=== PATIENT | male | born 1980 | race Caucasian/White ===

== ENCOUNTER 2016-12-18 23:01 | Emergency (ER) | payer OTHER ==
[~2016-12-18] VITALS: Ht 177.8 cm; Wt 86.2 kg
[~2016-12-18 23:01] MED LIST: ACETAMINOPHEN-H1 TA2 PO; BUPROPION HCL150 MG PO; CLINDAMYCIN300 MG PO; DARVOCET-N 1001 EACH PO; FLEXERIL10 MG PO; KEFLEX500 M1 PO; LEVOTHYROXINE0.05 MG PO; MINOCYCLINE 10100 MG PO; NAPROXEN SODIU500 MG PO; NOMEDS; PRIMIDONE 50 MG50 MG PO; SERTRALINE 100100 MG PO; ULTRAM50 MG PO; VOLTAREN75 MG PO; ZITHROMAX Z PA250 MG PO; ZITHROMAX Z-PA250 M1 PO
--- NOTE | 2016-12-18 23:24 | Emergency Room Report ---
History of Present Illness Time Seen by [id number] Presenting Problem in Triage Pt arrived:Walked Presenting Problem:C/O PAIN LEFT FOOT AFTER STEPPING DOWN OFF STEP AND TWISTING FOOT/ANKLE TODAY. 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 N Clinical Suspician of Infection? N Mental Status: 1 - Regular (Normal Baseline) Sepsis Risk:Possible Sepsis Risk Have you (or family members/close friends) recently traveled outside the [place]? N If Yes, where/when: Have you had exposure to infectious disease within the past month? N TB? Other? Specify: Source patient, RN notes reviewed, old records Exam Limitations no limitations Comment lt foot injury after eversion type injury today with pain wirh mov and wt bearing Cardiac Chest Pain Chest pain indicative of cardiac No Timing/Duration this evening Severity moderate ALLERGIES Coded Allergies: amoxicillin (06/17/15) chlorpheniramine (From [facility]) (06/17/15) codeine (From [facility]) (06/17/15) dihydrocodeine (From [facility]) (06/17/15) phenylephrine (From [facility]) (06/17/15) pseudoephedrine (From [facility]) (06/17/15) History Medical History General CAD? No Angina: No [place]: No Hypertension? No Hyperlipidemia? No CHF? No DVT? No PE? No COPD? No Asthma? No Anemia? No GERD? No Gastric ulcers? No GI Bleed? No Hernia? No Thyroid Problems? Yes Hypothyroidism? Yes CVA? No Seizures? No Diabetes? No Renal Insuffiency? No End Stage Renal Disease? No UTI? No Stones? No GB Disease: No Nephritic Syndrome? No Asplenia? No Hepatitis? No Sickle Cell Disease? No Arthritis? No Migraines? No Cataracts? No Glaucoma? No MRSA? No HIV? No TB? No Anxiety? No Depression? Yes Cancer? No More? Yes Additional hx: HEREDITARY TREMORS Immunization Hx DT/Tetanus UNKNOWN Surgical Hx Previous Surgery?Y TONSILS VASECTOMY Social History Smoking Hx Smoker: Current Some Day Smoker Tobacco: Yes Type N/A Packs/day N/A Alcohol Alcohol: No Drugs none Review of Systems All Other Systems Reviewed and Negative Constitutional denies fever Eyes denies drainage ENT denies: ear pain, epistaxis, throat pain. Respiratory denies cough, denies shortness of breath, denies wheezing Cardiovascular denies chest pain, denies syncope Gastrointestinal denies abdominal pain, denies diarrhea, denies vomiting Genitourinary denies: dysuria, frequency, hesitancy, hematuria. Musculoskeletal see HPI, denies back pain, joint pain, joint swelling, denies neck pain Skin denies rash Psychiatric/Neurological denies headache, denies seizure Physical Exam Vital Signs Vital Signs Date Time Temp Pulse Resp B/P Pulse O2 O2 Flow FiO2 Ox Delivery Rate 12/18 2312 984.0 81 20 139/86 96 - WBC >12,000 or <4,000 or 10% bands? 2 or more SIRS Criteria Met? B/P:139/86 MAP:103 Creatinine >2.0? UA output<0.5ml/kg/hr for 2 hrs? Platelet count >100,000? Lactate >2.0mmol/1? INR >1.2 or PTT > than 60 sec? Evidence of Organ Dysfunction? Provider documented clinical suspician of infection? N Sepsis Criteria Count: 2 Sepsis Risk: Possible Sepsis Risk General Appearance no apparent distress Eye Exam - bilateral eye PERRL, bilateral eye EOMI Ear, Nose, Throat normal ENT inspection Neck supple Respiratory Status No: respiratory distress. 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 No Results/Orders Orders Procedure Date/time Status FOOT-LT-3 VIEWS 12/19 2319 Active ANKLE-LT-3 VIEWS 12/19 2319 Active XRAY/CT/US XRAY/CT/US XRAY ankle, foot XR interpretation by reviewed by me Xray Results no fracture seen Departure Departure Time of Disposition 2322 Disposition DC Home or Self Care(routine) Clinical Impression Primary Impression: Sprain of foot, left Qualifiers: Encounter type: initial encounter Qualified Code: S93.602A - Unspecified sprain of left foot, initial encounter Condition STABLE Referrals LIANG CASEY DPM Patient Instructions DI for Foot Sprain Additional Instructions ice and see podiatry /pcp for follow up Discharge Counseling Counseled pt/family regarding diagnosis, test results, medications/RX, follow up needs ED Critical Care Critical Care No at [phone]
--- NOTE | 2016-12-18 23:24 | Emergency Room Report ---
History of Present Illness Time Seen by [id number] Presenting Problem in Triage Pt arrived:Walked Presenting Problem:C/O PAIN LEFT FOOT AFTER STEPPING DOWN OFF STEP AND TWISTING FOOT/ANKLE TODAY. 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 N Clinical Suspician of Infection? N Mental Status: 1 - Regular (Normal Baseline) Sepsis Risk:Possible Sepsis Risk Have you (or family members/close friends) recently traveled outside the [place]? N If Yes, where/when: Have you had exposure to infectious disease within the past month? N TB? Other? Specify: Source patient, RN notes reviewed, old records Exam Limitations no limitations Comment lt foot injury after eversion type injury today with pain wirh mov and wt bearing Cardiac Chest Pain Chest pain indicative of cardiac No Timing/Duration this evening Severity moderate ALLERGIES Coded Allergies: amoxicillin (06/17/15) chlorpheniramine (From [facility]) (06/17/15) codeine (From [facility]) (06/17/15) dihydrocodeine (From [facility]) (06/17/15) phenylephrine (From [facility]) (06/17/15) pseudoephedrine (From [facility]) (06/17/15) History Medical History General CAD? No Angina: No [place]: No Hypertension? No Hyperlipidemia? No CHF? No DVT? No PE? No COPD? No Asthma? No Anemia? No GERD? No Gastric ulcers? No GI Bleed? No Hernia? No Thyroid Problems? Yes Hypothyroidism? Yes CVA? No Seizures? No Diabetes? No Renal Insuffiency? No End Stage Renal Disease? No UTI? No Stones? No GB Disease: No Nephritic Syndrome? No Asplenia? No Hepatitis? No Sickle Cell Disease? No Arthritis? No Migraines? No Cataracts? No Glaucoma? No MRSA? No HIV? No TB? No Anxiety? No Depression? Yes Cancer? No More? Yes Additional hx: HEREDITARY TREMORS Immunization Hx DT/Tetanus UNKNOWN Surgical Hx Previous Surgery?Y TONSILS VASECTOMY Social History Smoking Hx Smoker: Current Some Day Smoker Tobacco: Yes Type N/A Packs/day N/A Alcohol Alcohol: No Drugs none Review of Systems All Other Systems Reviewed and Negative Constitutional denies fever Eyes denies drainage ENT denies: ear pain, epistaxis, throat pain. Respiratory denies cough, denies shortness of breath, denies wheezing Cardiovascular denies chest pain, denies syncope Gastrointestinal denies abdominal pain, denies diarrhea, denies vomiting Genitourinary denies: dysuria, frequency, hesitancy, hematuria. Musculoskeletal see HPI, denies back pain, joint pain, joint swelling, denies neck pain Skin denies rash Psychiatric/Neurological denies headache, denies seizure Physical Exam Vital Signs Vital Signs Date Time Temp Pulse Resp B/P Pulse O2 O2 Flow FiO2 Ox Delivery Rate 12/18 2312 984.0 81 20 139/86 96 - WBC >12,000 or <4,000 or 10% bands? 2 or more SIRS Criteria Met? B/P:139/86 MAP:103 Creatinine >2.0? UA output<0.5ml/kg/hr for 2 hrs? Platelet count >100,000? Lactate >2.0mmol/1? INR >1.2 or PTT > than 60 sec? Evidence of Organ Dysfunction? Provider documented clinical suspician of infection? N Sepsis Criteria Count: 2 Sepsis Risk: Possible Sepsis Risk General Appearance no apparent distress Eye Exam - bilateral eye PERRL, bilateral eye EOMI Ear, Nose, Throat normal ENT inspection Neck supple Respiratory Status No: respiratory distress. 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 No Results/Orders Orders Procedure Date/time Status FOOT-LT-3 VIEWS 12/19 2319 Active ANKLE-LT-3 VIEWS 12/19 2319 Active XRAY/CT/US XRAY/CT/US XRAY ankle, foot XR interpretation by reviewed by me Xray Results no fracture seen Departure Departure Time of Disposition 2322 Disposition DC Home or Self Care(routine) Clinical Impression Primary Impression: Sprain of foot, left Qualifiers: Encounter type: initial encounter Qualified Code: S93.602A - Unspecified sprain of left foot, initial encounter Condition STABLE Referrals LIANG CASEY DPM Patient Instructions DI for Foot Sprain Additional Instructions ice and see podiatry /pcp for follow up Discharge Counseling Counseled pt/family regarding diagnosis, test results, medications/RX, follow up needs ED Critical Care Critical Care No at [phone]
[2016-12-18 23:51] VITALS: BP 125/88
--- NOTE | 2016-12-19 06:39 | RADIOLOGY REPORT PS360 ---
ANKLE-LT-3 VIEWS HISTORY: Left ankle pain C/O LEFT FOOT PAIN AFTER TWISTING ANKLE ORDERING PHYSICIAN: Alfonso Nieves MD PATIENT AGE: 36 years COMPARISON: None FINDINGS: No fracture or dislocation. No lytic or blastic change. There is normal mineralization.. The joint spaces are well-preserved. No significant degenerative/arthritic changes. No erosive changes evident. IMPRESSION: Negative ankle, no acute finding
--- NOTE | 2016-12-19 06:39 | RADIOLOGY REPORT PS360 ---
FOOT-LT-3 VIEWS HISTORY: LEFT FOOT PAIN AFTER TWISTING ANKLE ORDERING PHYSICIAN: Alfonso Nieves MD PATIENT AGE: 36 years COMPARISON: None FINDINGS: No fracture or dislocation. No lytic or blastic change. There is normal mineralization.. The joint spaces are well-preserved. No significant degenerative/arthritic changes. No erosive changes evident. IMPRESSION: Negative left foot, no acute finding
--- OUTSIDE RECORDS SUMMARY | 2016-12-19 06:42 | External Medical Summary Rpt | CCD ---
Author Author , DAVID Organization DAVID Address Unknown Phone [email or web address] Care Team Providers Care Unemployment Specialist Name Role Phone ALFARIS MOH, ALFARIS Unavailable Unavailable MOH CANCINO BRO, CANCINO Unavailable Unavailable BRO CANCINO BRO, CANCINO Unavailable Unavailable BRO BESSON AUDELIA, BESSON Unavailable Unavailable AUDELIA BESSON AUDELIA, BESSON Unavailable Unavailable AUDELIA TATE ALL, TATE ALL Unavailable Unavailable AYUSH JYOTHI, Unavailable Unavailable AYUSH JYOTHI FAUGHN ALBERTO, FAUGHN Unavailable Unavailable ALBERTO LUCIA SERGEI, LUCIA Unavailable Unavailable SERGEI [facility] Unavailable Unavailable [facility], [facility] Unavailable Unavailable INC, [facility] Unavailable Unavailable [facility]ITAL P, [facility], Unavailable Unavailable [facility] TAMI HANEY, TAMI HANEY Unavailable Unavailable [facility] Unavailable Unavailable [facility], [facility] Unavailable Unavailable INTERNAL MED, [facility] JOSE M SALGUERO Unavailable Unavailable [facility], Unavailable Unavailable PLL[facility], [facility] EZEKIEL TOD, EZEKIEL TOD Unavailable Unavailable [facility], [facility] RIKI SHE, Unavailable Unavailable RIKI BACK, NAZANIN Unavailable Unavailable WALK[facility] FOR, WALKER Unavailable Unavailable FOR [facility] Unavailable Unavailable DEPT [facility] DEPT [facility] Unavailable Unavailable DEPT [facility] DEPT [facility] Purpose Continuity of Care Document - 06-18-2013 through 2016 Problems Code Diagnosis DOS Provider Status [id number] OTHER 03-05-2016 [facility] CERVICAL FAMILY DISC [facility] DEGENERATIO N AT C5-C6 LEVEL M5442 LUMBAGO 03-05-2016 [facility] WITH FAMILY SCIATICA [facility] LEFT SIDE D95704 MUSCLE 03-05-2016 [facility] SPASM OF FAMILY BACK [facility] M9901 SEGMENTAL & 03-05-2016 [facility] SOMATIC FAMILY DYSFUNCTION [facility] CERVICAL REGION M9902 SEGMENTAL & 03-05-2016 [facility] SOMATIC FAMILY DYSFUNCTION [facility] THORACIC REGION M9903 SEGMENTAL & 03-05-2016 [facility] SOMATIC FAMILY DYSFUNCTION [facility] OF LUMBAR REGION M9904 SEGMENTAL & 03-05-2016 [facility] SOMATIC FAMILY DYSFUNCTION [facility] OF SACRAL REGION M9985 OTHER 03-05-2016 [facility] BIOMECHANIC FAMILY AL LESIONS [facility] OF PELVIC REGION J029 ACUTE 11-27-2015 [facility] UNSPECIFIED R0789 OTHER CHEST 06-17-2015 [facility] R091 PLEURISY 06-17-2015 [facility], [facility] R251 TREMOR 06-17-2015 [facility]NSPECIFIED [facility] Z720 TOBACCO USE 06-17-2015 [facility] N508 OTHER 05-12-2015 [facility] SPECIFIED MEDICAL DISORDERS [facility] OF MALE GENITAL ORGANS Z9852 VASECTOMY 05-12-2015 [facility] STATUS [facility] Z0189 ENCOUNTER 04-18-2015 [facility] SPECIFIED SPECIAL EXAMINATION S Z302 ENCOUNTER 04-18-2015 [facility] STERILIZATI GROUP ON N469 MALE 03-26-2015 [facility] UNSPECIFIED S01570 ENCOUNTER 03-26-2015 [facility] FOR OTHER [facility] PREPROCEDUR INC AL EXAMINATION N5921GF UNS INJURY 02-12-2015 [facility] RT SHOULDER PHYSICIANS, UPPER ARM [facility] INITIAL ENCNTR Z23 ENCOUNTER 12-30-2014 [facility] IMMUNIZATIO [facility] DEPT N SHAY V2509 OT GENERAL 11-13-2014 [facility] CNSL&ADVICE INC CONTRACEPT MANAGEMENT V2652 VASECTOMY 11-13-2014 [facility] STERILIZATI PHYSICIANS ON STATUS GROUP V7283 OTHER 11-13-2014 [facility] SPECIFIED [facility] PRE-OPERATI INC VE EXAMINATION 5259 UNSPECIFIED 06-11-2014 [facility] DISORDER [facility] P RTING STRUCTURES 2449 UNSPECIFIED 04-13-2014 [facility] HYPOTHYROID INC ISM 0539 HERPES 12-21-2013 [facility]ER [facility] WITHOUT GROUP MENTION OF COMPLICATIO N 21354 UNSPECIFIED 12-16-2013 [facility] CARIES PHYS 5225 PERIAPICAL 12-16-2013 [facility] ABSCESS N EMERGENCY WITHOUT PHYS SINUS 97660 PAIN IN 09-24-2013 [facility] 7810 ABNORMAL 09-24-2013 [facility] IN[facility]UNTARY [facility] INTERNAL MED V700 ROUTINE 06-25-2013 AKBAR AUDELIA GENERAL MEDICAL [email or web address] CARE FACL 4739 UNSPECIFIED 06-18-2013 [facility] SINUSITIS 7840 HEADACHE 06-18-2013 [facility] CAL[facility] Medications Na ND Rx Da Fi Fi Am Da Di Ph RX Ph St me C No te ll ll ou ys ag ar # ys at rm s nt no ma ic us Or Da si cy ia de te s n re d LE 00 12 30 30 00 WA Ac VO 78 -2 -2 .0 00 L- ti TH 15 2- 7- 00 07 MA ve YR 18 20 20 46 RT OX 19 16 17 02 IN 2 68 PH E AR 50 MA CY MC G #5 TA 91 BL ET Immunization Name Date Rout CVX Reac Dose Comm Prov Is Faci e tion ent ider Refu lity Give sed n IIV4 10-2 158 [facility] No [facility] 6-20 O O VACC 15 DIST DIST RICT RICT SPLI T HLTH HLTH VIRU S DEPT DEPT 0.5 SHAY SH[facility] ML DOS FOR IM USE Procedures Procedure DOS Code Location Performer Comment APPL 22689 [facility] BACK MODALITY 6 N FAMILY 1/> AREAS CHIROP[facility] TRACTION T MECHANICA L APPL 86370 [facility] MODALITY 6 N FAMILY 1/> AREAS CHIROPRAC ELEC T STIMJ UNATTENDE D CHIROPRAC 11043 [facility] BACK TIC 6 N FAMILY MANIPLTV CHIROPRAC TX T EXTRASPIN AL 1/> REGION CHIROPRAC 96987 [facility] BACK TIC 6 N FAMILY MANIPULAT CHIROPRAC SHINE TX T SPINAL 3-4 REGIONS THERAPEUT 65310 [facility] BACK IC PX 1/> 6 N FAMILY AREAS CHIROPRAC EACH 15 T MIN EXERCISES CHIROPRAC 41835 [facility] BACK TIC 6 N FAMILY MANIPULAT CHIROPRAC SHINE TX T SPINAL 3-4 REGIONS APPL 65336 [facility]OE[facility] BACK MODALITY 6 N FAMILY 1/> AREAS CHIROPRAC ELEC T STIMJ UNATTENDE D APPL 89203 [facility] BACK MODALITY 6 N FAMILY 1/> AREAS CHIROPRAC TRACTION T MECHANICA L THERAPEUT 71250 [facility] BACK IC PX 1/> 6 N FAMILY AREAS CHIROPRAC EACH 15 T MIN EXERCISES CHIROPRAC 53437 PHOEBE BACK TIC 6 N FAMILY MANIPLTV CHIROPRAC TX T EXTRASPIN AL 1/> REGION APPL 88506 PHOE[facility] BACK MODALITY 6 N FAMILY 1/> AREAS CHIROPRAC TRACTION T MECHANICA L APPL 63190 [facility] BACK MODALITY 6 N FAMILY 1/> AREAS CHIROPRAC ELEC T STIMJ UNATTENDE D THERAPEUT 68358 PHOEBE BACK IC PX 1/> 6 N FAMILY AREAS CHIROPRAC EACH 15 T MIN EXERCISES CHIROPRAC 38646 PHOEBE BACK TIC 6 N FAMILY MANIPULAT CHIROPRAC SHINE TX T SPINAL 3-4 REGIONS CHIROPRAC 29082 PHOEBE BACK TIC 6 N FAMILY MANIPLTV CHIROPRAC TX T EXTRASPIN AL 1/> REGION CHIROPRAC 52255 PHOEBE BACK TIC 6 N FAMILY MANIPLTV CHIROPRAC TX T EXTRASPIN AL 1/> REGION APPL 72594 PHOEBE BACK MODALITY 6 N FAMILY 1/> AREAS CHIROPRAC ELEC T STIMJ UNATTENDE D APPL 38527 PHOEBE BACK MODALITY 6 N FAMILY 1/> AREAS CHIROPRAC TRACTION T MECHANICA L THERAPEUT 69933 PHOEBE BACK IC PX 1/> 6 N FAMILY AREAS CHIROPRAC EACH 15 T MIN EXERCISES CHIROPRAC 07081 [facility] ABCK TIC 6 N FAMILY MANIPLTV CHIROPRAC TX T EXTRASPIN AL 1/> REGION RADEX 95891 [facility] NAZANIN SPINE 6 N FAMILY LUMBOSACR CHIROPRAC AL 2/3 T VIEWS RADEX 28823 [facility] BACK SPINE 6 N FAMILY CERVICAL CHIROPRAC 2 OR 3 T VIEWS CHIROPRAC 23247 [facility] BACK TIC 6 N FAMILY MANIPULAT CHIROPRAC SHINE TX T SPINAL 3-4 REGIONS CUL BACT 04-12-201 38005 [facility] THAO XCPT 6 [facility] URINE INC INC BLOOD/[place] [address] [facility] THAO STREPTOCO 6 [facility] CCUS INC INC GROUP A RADIOLOGI 69033 [place] TATE ALL C EXAM 6 MEDICAL CHEST 2 IMAGING V[place] FR[place] [address] [place] [facility] SCROTUM & 6 MEDICAL JYOTHI CONTENTS IMAGING ASS URNLS DIP 23498 [facility] THAO 6 [facility] STICK/TAB INC INC LET REAGENT AUTO MICROSCOP Y BLOOD 99006 [facility] THAO COUNT 6 [facility] COMPLETE INC INC AUTO&AUTO DIFRNTL WBC COLLECTIO 53715 [facility] THAO N VENOUS 6 [facility] [place] [address] [facility] M SURG 6 [facility] PATHOLOGY GROSS&SERGEI ROSCOPIC EXAM ANES 95218 [facility] VASECTOMY 6 ANESTH SHE UNI/BI OF THE INCL OPEN BLUE URETHRAL PX VASECTOMY 90149 [facility] EZEKIEL TOD UNI/BI 6 PHYSICIAN SPX [place] GROUP [place] [address] [facility] THAO INFUSION 6 [facility] THERAPY INC INC PROPHYLAX IS/DX EA HOUR INJECTION J2405 [facility] THAO 6 [facility] ONDANSETR INC INC ON HCL PER 1 MG BLOOD 60335 [facility] THAO COUNT 6 [facility] COMPLETE INC INC AUTO&AUTO DIFRNTL WBC BASIC 64186 [facility] THAO METABOLIC 6 [facility] PANEL INC INC CALCIUM TOTAL COLLECTIO 87401 [facility] THAO N VENOUS 6 [facility] BLOOD INC INC VENIPUNCT URE IIV4 VACC 93542 [facility] VIRUS 0.5 HLTH DEPT HLTH DEPT ML DOS SHAY SHAY FOR IM USE BASIC 36623 [facility] THAO METABOLIC 5 [facility] PANEL INC INC CALCIUM TOTAL COLLECTIO 32705 [facility] THAO N VENOUS 5 [facility] BLOOD INC INC VENIPUNCT URE BLOOD 26637 KEESHADIANA THAO COUNT 5 [facility] COMPLETE INC INC AUTO&AUTO DIFRNTL WBC THERAPEUT 27359 [facility] THAO IC 5 [facility] PROPHYLAC INC INC TIC/DX INJECTION SUBQ/IM COLLECTIO 87289 [facility] THAO N VENOUS 5 [facility] [place] [address] [facility] THAO THYROID 5 [facility] STIMULAT[place] [address] KE[facility] KE[facility]HA THYROID 4 [facility] ST[place]ULATI [place] [address] KEESHADIANA THAO THYROID 4 [facility] STIMULATI INC INC NG HORMONE TSH BLOOD 06695 [facility] KEESHA COUNT 4 [facility] COMPLETE INC INC AUTO&AUTO DIFRNTL WBC 25 02374 [facility] THAO HYDROXY 4 [facility] INCLUDES INC INC FRACTIONS IF PERFORMED CYANOCOBA 16641 [facility] THAO JUN 4 [facility] VITAMIN INC INC B-12 SYPHILIS 26258 [facility] THAO TEST 4 [facility] NON-TREPO INC INC NEMAL ANTIBODY QUAL COMPREHEN 55295 [facility] THAO SIVE 4 [facility] METABOLIC INC INC PANEL Encounters Encounter Start End Date Code Location Performer Type Date OFFICE 86899 [facility] 6 6 N FAMILY T NEW 20 CHIROPRAC MINUTES T EMERGENCY 37824 ARSEN MYERS 6 6 PHYSICIAN [facility] S, [facility] T VISIT MODERATE SEVERITY EMERGENCY 53720 [facility] 6 6 [facility] VIS[facility]/M INOR PROB EMERGENCY 82496 ARSEN HANEY 6 6 PHYSICIAN [facility] S, [facility] T VISIT MODERATE SEVERITY HOSPITAL [facility] - 6 6 [facility] OUTPATIEN [facility] KEESHA - 6 6 [facility] OUTPAT[facility] INC HOSPITAL [facility] - 6 6 [facility] INC T HOSPITAL [facility] - 6 6 [facility] T OFFICE 10750 [facility] EZEKIEL TOD OUTPATIEN 6 6 PHYSICIAN T VISIT S GROUP 10 MINUTES EMERGENCY 95052 [facility] 5 5 [facility] T VISIT LIMITED/M INOR PROB EMERGENCY 82379 ARSEN SALMON 5 5 PHYSICIAN FOR [facility], [facility] T VISIT MODERATE SEVERITY HOSPITAL KE[facility] - 5 5 [facility] OUT[facility]IEN [facility] KEESHA - 5 5 [facility] T OFFICE 45853 [facility] EZEKIEL TOD CONSULTAT 5 5 PHYSICIAN ION S GROUP NEW/ESTAB PATIENT 30 MIN HOSPITAL [facility] - 5 5 [facility] OUTPAT[facility]EN [facility] T EMERGENCY 87940 [facility] MORALES 5 5 [facility] T VISIT P LOW/MODER SEVERITY HOSPITAL [facility] - 5 5 [facility] T OFFICE 49423 [facility] 4 PHYSICIAN SERGEI T NEW 20 S GROUP MINUTES EMERGENCY 05841 [facility] 4 [facility] EMERGENCY T VISIT PHYS MODERATE SEVERITY HOSPITAL [facility] - 4 4 [facility] OUTPATIEN INC T OFFICE 04709 [facility] 4 4 [facility] T VISIT INTERNAL 15 MED MINUTES OFFICE 76273 [facility] OUT[facility]IEN 4 4 [facility] AUDELIA T NEW 45 MINUTES HOSPITAL [facility] - 4 4 [facility] OUTPATIEN INC T EMERGENCY 63210 [facility] CANCINO 4 4 [facility] T VISIT MODERATE SEVERITY
--- OUTSIDE RECORDS SUMMARY | 2016-12-19 06:42 | External Medical Summary Rpt | CCD ---
Author Author , DAVID Organization DAVID Address Unknown Phone [email or web address] Team Providers Care Emergency Vehicle Driver Name Role Phone ALFARIS MOH, ALFARIS Unavailable Unavailable MOH CANCINO BRO, CANCINO Unavailable Unavailable BRO CANCINO BRO, CANCINO Unavailable Unavailable BRO BESSON AUDELIA, BESSON Unavailable Unavailable AUDELIA BESSON AUDELIA, BESSON Unavailable Unavailable AUDELIA TATE ALL, TATE ALL Unavailable Unavailable AYUSH JYOTHI, Unavailable Unavailable AYUSH JYOTHI FAUGHN ALBERTO, FAUGHN Unavailable Unavailable ALBERTO LUCIA SERGEI, LUCIA Unavailable Unavailable SERGEI [facility] Unavailable Unavailable [facility], [facility] Unavailable Unavailable INC, [facility] Unavailable Unavailable HOSPITAL P, [facility], Unavailable Unavailable [facility] TAMI HANEY, TAMI HANEY Unavailable Unavailable [facility] Unavailable [facility], [facility] Unavailable Unavailable INTERNAL MED, [facility] JOSE M SALGUERO Unavailable Unavailable [facility], Unavailable Unavailable PLL[facility], [facility] EZEKIEL TOD, EZEKIEL TOD Unavailable Unavailable [facility] RIKI SHE, Unavailable Unavailable RIKI BACK, NAZANIN Unavailable Unavailable WALKER FOR, WALKER Unavailable Unavailable FOR [facility] Unavailable Unavailable DEPT [facility] DEPT [facility] Unavailable [facility]available DEPT [facility], [facility] DEPT [facility] Purpose Continuity of Care Document - 06-18-2013 through 2016 Problems Code Diagnosis DOS Provider Status [id number] OTHER 03-05-2016 [facility] CERVICAL FAMILY DISC [facility]CT DEGENERATIO N AT C5-C6 LEVEL M5442 LUMBAGO 03-05-2016 [facility] WITH FAMILY SCIATICA CHIR[facility]CT LEFT SIDE [id number] MUSCLE 03-05-2016 [facility] SPASM OF FAMILY BACK CHIROPRACT M9901 SEGMENTAL & 03-05-2016 [facility] SOMATIC FAMILY DYSFUNCTION [facility] CERVICAL REGION M9902 SEGMENTAL & 03-05-2016 [facility] SOMATIC FAMILY DYSFUNCTION [facility] THORACIC REGION M9903 SEGMENTAL & 03-05-2016 [facility] SOMATIC FAMILY DYSFUNCTION [facility] OF LUMBAR REGION M9904 SEGMENTAL & 03-05-2016 [facility] SOMATIC FAMILY DYSFUNCTION [facility] OF SACRAL REGION M9985 OTHER 03-05-2016 [facility] BIOMECHANIC FAMILY AL LESIONS [facility]CT OF PELVIC REGION J029 ACUTE 11-27-2015 [facility] UNSPECIFIED R0789 OTHER CHEST 06-17-2015 [facility] R091 PLEURISY 06-17-2015 [facility] R251 TREMOR 06-17-2015 [facility]NSPECIFIED [facility] Z720 TOBACCO USE 06-17-2015 [facility] N508 OTHER 05-12-2015 [facility] SPECIFIED MEDICAL DISORDERS [facility] OF MALE GENITAL ORGANS Z9852 VASECTOMY 05-12-2015 [facility] STATUS [facility] Z0189 ENCOUNTER 04-18-2015 [facility] SPECIFIED SPECIAL EXAMINATION S Z302 ENCOUNTER 04-18-2015 [facility] STERILIZATI GROUP ON N469 MALE 03-26-2015 [facility] INFERTILITY [facility]YS[facility]ANS GROUP UNSPECIFIED P02629 ENCOUNTER 03-26-2015 [facility] FOR OTHER [facility] PREPROCEDUR INC AL EXAMINATION V9554RT UNS INJURY 02-12-2015 [facility] RT SHOULDER PHYSICIANS, UPPER ARM [facility] INITIAL ENCNTR Z23 ENCOUNTER 12-30-2014 [facility] IMMUNIZATIO [facility] DEPT N SHAY V2509 OT GENERAL 11-13-2014 [facility] CNSL&ADVICE INC CONTRACEPT MANAGEMENT V2652 VASECTOMY 11-13-2014 [facility] STERILIZATI PHYSICIANS ON STATUS GROUP V7283 OTHER 11-13-2014 [facility] SPECIFIED [facility] PRE-OPERATI INC VE EXAMINATION 5259 UNSPECIFIED 06-11-2014 [facility] DISORDER [facility] P RTING STRUCTURES 2449 UNSPECIFIED 04-13-2014 [facility] HYPOTHYROID INC ISM 0539 HERPES 12-21-2013 [facility] ZOSTER PHYSICIANS WITHOUT GROUP MENTION OF COMPLICATIO N 21494 UNSPECIFIED 12-16-2013 [facility] CARIES PHYS 5225 PERIAPICAL 12-16-2013 [facility] ABSCESS N EMERGENCY WITHOUT PHYS SINUS 81837 PAIN IN 09-24-2013 [facility] [...] Procedure DOS Code Location Performer Comment APPL 57033 PHOEBE BACK MODALITY 6 N FAMILY 1/> AREAS CHIROPRAC TRACTION T MECHANICA L APPL 07859 PHOE[facility] BACK MODALITY 6 N FAMILY 1/> AREAS CHIROPRAC ELEC T STIMJ UNATTENDE D CHIROPRAC 16501 PHOEBE BACK TIC 6 N FAMILY MANIPLTV CHIROPRAC TX T EXTRASPIN AL 1/> REGION CHIROPRAC 11719 PHOEBE BACK TIC 6 N FAMILY MANIPULAT CHIROPRAC SHINE TX T SPINAL 3-4 REGIONS THERAPEUT 07657 PHOEBE BACK IC PX 1/> 6 N FAMILY AREAS CHIROPRAC EACH 15 T MIN EXERCISES CHIROPRAC 80235 PHOEBE BACK TIC 6 N FAMILY MANIPULAT CHIROPRAC SHINE TX T SPINAL 3-4 REGIONS APPL 53815 PHOEBE BACK MODALITY 6 N FAMILY 1/> AREAS CHIROPRAC ELEC T STIMJ UNATTENDE D APPL 81342 PHOEBE BACK MODALITY 6 N FAMILY 1/> AREAS CHIROPRAC TRACTION T MECHANICA L THERAPEUT 82671 PHOEBE BACK IC PX 1/> 6 N FAMILY AREAS CHIROPRAC EACH 15 T MIN EXERCISES CHIROPRAC 93950 PHOEBE BACK TIC 6 N FAMILY MANIPLTV CHIROPRAC TX T EXTRASPIN AL 1/> REGION APPL 10899 PHOEBE BACK MODALITY 6 N FAMILY 1/> AREAS CHIROPRAC TRACTION T MECHANICA L APPL 51830 PHOEBE BACK MODALITY 6 N FAMILY 1/> AREAS CHIROPRAC ELEC T STIMJ UNATTENDE D THERAPEUT 22459 PHOEBE BACK IC PX 1/> 6 N FAMILY AREAS CHIROPRAC EACH 15 T MIN EXERCISES CHIROPRAC 59482 PHOEBE BACK TIC 6 N FAMILY MANIPULAT CHIROPRAC SHINE TX T SPINAL 3-4 REGIONS CHIROPRAC 35477 PHOEBE BACK TIC 6 N FAMILY MANIPLTV CHIROPRAC TX T EXTRASPIN AL 1/> REGION CHIROPRAC 80207 PHOEBE BACK TIC 6 N FAMILY MANIPLTV CHIROPRAC TX T EXTRASPIN AL 1/> REGION APPL 72962 PHOEBE BACK MODALITY 6 N FAMILY 1/> AREAS CHIROPRAC ELEC T STIMJ UNATTENDE D APPL 46251 PHOEBE BACK MODALITY 6 N FAMILY 1/> AREAS CHIROPRAC TRACTION T MECHANICA L THERAPEUT 82153 PHOEBE BACK IC PX 1/> 6 N FAMILY AREAS CHIROPRAC EACH 15 T MIN EXERCISES CHIROPRAC 82449 PHOEBE BACK TIC 6 N FAMILY MANIPLTV CHIROPRAC TX T EXTRASPIN AL 1/> REGION RADEX 53802 [facility] NAZANIN SPINE 6 N FAMILY LUMBOSACR CHIROPRAC AL 2/3 T VIEWS RADEX 18606 [facility] BACK SPINE 6 N FAMILY CERVICAL CHIROPRAC 2 OR 3 T VIEWS CHIROPRAC 22699 PHOEBE BACK TIC 6 N FAMILY MANIPULAT CHIROPRAC SHINE TX T SPINAL 3-4 REGIONS CUL BACT 04-12-201 61031 [facility] XCPT 6 [facility] URINE INC INC BLOOD/[place] [address] [facility]AO STREPTOCO 6 [facility] CCUS INC INC GROUP A RADIOLOGI 96793 [place] TATE ALL C EXAM 6 MEDICAL CHEST 2 IMAGING VIEWS [place] FRONTAL&[place] [address] [place] AYUSH SCROTUM & 6 MEDICAL JYOTHI CONTENTS IMAGING ASS URNLS DIP 75162 [facility] THAO 6 [facility] STICK/TAB INC INC LET REAGENT AUTO MICROSCOP Y BLOOD 08440 [facility] COUNT 6 [facility] COMPLETE INC INC AUTO&AUTO DIFRNTL WBC COLLECTIO 88315 [facility] THAO N VENOUS 6 [facility] [place] [address] [facility]SE M SURG 6 [facility] PATHOLOGY GROSS&SERGEI ROSCOPIC EXAM ANES 84904 [facility] VASECTOMY 6 ANESTH SHE UNI/BI OF THE INCL OPEN BLUE URETHRAL PX VASECTOMY 77363 [facility] EZEKIEL TOD UNI/BI 6 PHYSICIAN SPX [place] [address] [facility]AO INFUSION 6 [facility] THERAPY INC INC PROPHYLAX IS/DX EA HOUR INJECTION J2405 [facility] THAO 6 [facility] ONDANSETR INC INC ON HCL PER 1 MG BLOOD 22046 [facility] THAO COUNT 6 [facility] COMPLETE INC INC AUTO&AUTO DIFRNTL WBC BASIC 67972 [facility] THAO METABOLIC 6 [facility] PANEL INC INC CALCIUM TOTAL COLLECTIO 58563 [facility] THAO N VENOUS 6 [facility] BLOOD INC INC VENIPUNCT URE IIV4 VACC 31564 [facility] VIRUS 0.5 [facility] DEPT HLTH DEPT ML DOS SHAY SHAY FOR IM USE BASIC 67657 [facility] THAO METABOLIC 5 [facility] PANEL INC INC CALCIUM TOTAL COLLECTIO 78632 [facility] THAO N VENOUS 5 [facility] BLOOD INC INC VENIPUNCT URE BLOOD 95118 KE[facility]ADIANA THAO COUNT 5 [facility] COMPLETE INC INC AUTO&AUTO DIFRNTL WBC THERAPEUT 50313 [facility] THAO IC 5 [facility] PROPHYLAC INC INC TIC/DX INJECTION SUBQ/IM COLLECTIO 86238 [facility] THAO N VENOUS 5 [facility] [place] [address] [facility]AO THYROID 5 [facility] STIMUL[place] [address] KE[facility] THYROID 4 [facility] STIMULAT[place] [address] KEESHADIANA THAO THYROID 4 [facility] STIMULATI INC INC NG HORMONE TSH BLOOD 93881 [facility] KEESHA COUNT 4 [facility] COMPLETE INC INC AUTO&AUTO DIFRNTL WBC 25 30938 [facility] THAO HYDROXY 4 [facility] INCLUDES INC INC FRACTIONS IF PERFORMED CYANOCOBA 17257 [facility] THAO JUN 4 [facility] VITAMIN INC INC B-12 SYPHILIS 30907 [facility] THAO TEST 4 [facility] NON-TREPO INC INC NEMAL ANTIBODY QUAL COMPREHEN 90660 [facility] THAO SIVE 4 [facility] METABOLIC INC INC PANEL Encounters Encounter Start End Date Code Location Performer Type Date OFFICE 49329 [facility] 6 6 N FAMILY T NEW 20 CHIROPRAC MINUTES T EMERGENCY 07990 ARSEN MYERS 6 6 PHYSICIAN [facility] T VISIT MODERATE SEVERITY EMERGENCY 73074 [facility] 6 6 [facility] T V[facility]IT LIMITED/M INOR PROB EMERGENCY 19238 ARSEN HANEY 6 6 PHYSICIAN [facility], [facility] T VISIT MODERATE SEVERITY HOSPITAL [facility] - 6 6 [facility] OUTPATIEN [facility] KEESHA - 6 6 [facility] OUTPATI[facility] INC HOSPITAL KE[facility]HA - 6 6 [facility]PATIEN INC T HOSPITAL KEESHA - 6 6 [facility]PATIEN [facility] T OFFICE 43433 [facility] EZEKIEL TOD OUTPATIEN 6 6 PHYSICIAN T VISIT S GROUP 10 MINUTES EMERGENCY 11187 [facility] 5 5 [facility] T VISIT LIMITED/M INOR PROB EMERGENCY 83556 ARSEN SALMON 5 5 PHYSICIAN FOR [facility] T VISIT MODERATE SEVERITY HOSPITAL [facility] - 5 5 [facility]EN [facility] KEESHA - 5 5 [facility] OUTPATIEN [facility] T OFFICE 68597 [facility] EZEKIEL TOD CONSULTAT 5 5 PHYSICIAN ION S GROUP NEW/ESTAB PATIENT 30 MIN HOSPITAL [facility] - 5 5 [facility] OUT[facility]EN [facility] T EMERGENCY 79624 KE[facility] MORALES 5 5 [facility] T VISIT P LOW/MODER SEVERITY HOSPITAL [facility] - 5 5 [facility] OUTPATIEN [facility] T OFFICE 04363 [facility] PHYSICIAN SERGEI T NEW 20 S GROUP MINUTES EMERGENCY 27890 [facility] 4 4 [facility] EMERGENCY T VISIT PHYS MODERATE SEVERITY HOSPITAL [facility] - 4 4 [facility] OUTPATIEN INC T OFFICE 98050 [facility] 4 4 [facility] T VISIT INTERNAL 15 MED MINUTES OFFICE 20833 [facility] OUT[facility]IEN 4 4 AUDELIA AUDELIA T NEW 45 MINUTES HOSPITAL [facility] - 4 4 [facility] OUTPATIEN INC T EMERGENCY 72401 [facility] CANCINO 4 4 [facility] T VISIT MODERATE SEVERITY
--- OUTSIDE RECORDS SUMMARY | 2016-12-19 06:43 | External Medical Summary Rpt ---
Author Author DAVID Webster, DAVID Webster Organization DAVID Production Address Unknown Phone Unavailable
--- OUTSIDE RECORDS SUMMARY | 2016-12-19 06:43 | External Medical Summary Rpt | CCD ---
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 [employer] Name Role Phone ALFARIS MOH, ALFARIS Unavailable Unavailable MOH CANCINO BRO, CANCINO Unavailable Unavailable BRO CANCINO BRO, CANCINO Unavailable Unavailable BRO BESSON AUDELIA, BESSON Unavailable Unavailable AUDELIA BESSON AUDELIA, BESSON Unavailable Unavailable AUDELIA FAUGHN ALBERTO, FAUGHN Unavailable Unavailable ALBERTO LUCIA SERGEI, LUCIA Unavailable Unavailable SERGEI [facility] Unavailable Unavailable [facility], [facility] Unavailable Unavailable INC, [facility] Unavailable Unavailable HOSPITAL P, [facility], Unavailable Unavailable [facility] TAMI HANEY, TAMI HANEY Unavailable Unavailable [facility] Unavailable Unavailable [facility], [facility] Unavailable Unavailable INTERNAL MED, [facility] JOSE M SALGUERO Unavailable Unavailable [facility], Unavailable Unavailable [facility], [facility] EZEKIEL TOD, EZEKIEL TOD Unavailable Unavailable [facility], [facility] RKII NICOLE, Unavailable Unavailable NAZANIN DUMAS Unavailable Unavailable [facility] FOR, W[facility] Unavailable Unavailable FOR [facility] Unavailable Unavailable DEPT [facility] Unavailable [facility]available DEPT [facility], [facility] DEPT [facility] Purpose Continuity of Care Document - 06-18-2013 through 2016 Problems Code Diagnosis DOS Provider Status [id number] OTHER 03-05-2016 [facility] [place] CERVICAL FAMILY DISC [facility] DEGENERATIO N AT C5-C6 LEVEL M5442 LUMBAGO 03-05-2016 [place] WITH FAMILY SCIATICA [facility] LEFT SIDE [id number] MUSCLE 03-05-2016 [place] SPASM OF FAMILY BACK [facility] M9901 SEGMENTAL & 03-05-2016 [place] SOMATIC FAMILY DYSFUNCTION [facility] CERVICAL REGION M9902 SEGMENTAL & 03-05-2016 [place] SOMATIC FAMILY DYSFUNCTION [facility] THORACIC REGION M9903 SEGMENTAL & 03-05-2016 [place] SOMATIC FAMILY DYSFUNCTION [facility] OF LUMBAR REGION M9904 SEGMENTAL & 03-05-2016 [place] SOMATIC FAMILY DYSFUNCTION [facility] OF SACRAL REGION M9985 OTHER 03-05-2016 [place] BIOMECHANIC FAMILY AL LESIONS [facility] OF PELVIC REGION J029 ACUTE 11-27-2015 [facility] PHARYNGITIS [facility], [facility] UNSPECIFIED R0789 OTHER CHEST 06-17-2015 [facility] R091 PLEURISY 06-17-2015 [facility], [facility] R251 TREMOR 06-17-2015 [facility]NSPECIFIED [facility] Z720 TOBACCO USE 06-17-2015 [facility] N508 OTHER 05-12-2015 [facility] SPECIFIED MEDICAL DISORDERS IMAGING ASS OF MALE GENITAL ORGANS Z9852 VASECTOMY 05-12-2015 [facility] STATUS [facility] Z0189 ENCOUNTER 04-18-2015 [facility] SPECIFIED SPECIAL EXAMINATION S Z302 ENCOUNTER 04-18-2015 [facility] FOR [facility]ANS STERILIZATI GROUP ON N469 MALE 03-26-2015 [facility] IN[facility]ERTILITY [facility]ANS GROUP UNSPECIFIED V28412 ENCOUNTER 03-26-2015 [facility] FOR OTHER [facility] PREPROCEDUR INC AL EXAMINATION V8178ZN UNS INJURY 02-12-2015 [facility] RT SHOULDER PHYSICIANS, UPPER ARM [facility] INITIAL ENCNTR Z23 ENCOUNTER 12-30-2014 [facility] FOR DISTRICT IMMUNIZATIO [facility] DEPT N SHAY V2509 OT GENERAL 11-13-2014 [facility] CNSL&ADVICE INC CONTRACEPT MANAGEMENT V2652 VASECTOMY 11-13-2014 [facility] STERILIZATI PHYSICIANS ON STATUS GROUP V7283 OTHER 11-13-2014 [facility] SPECIFIED [facility] PRE-OPERATI INC VE EXAMINATION 5259 UNSPECIFIED 06-11-2014 [facility] DISORDER [facility] P RTING STRUCTURES 2449 UNSPECIFIED 04-13-2014 [facility] HYPOTHYROID INC ISM 0539 HERPES 12-21-2013 [facility] ZOSTER PHYSICIANS WITHOUT GROUP MENTION OF COMPLICATIO N 67927 UNSPECIFIED 12-16-2013 [facility] CARIES PHYS 5225 PERIAPICAL 12-16-2013 [facility] ABSCESS N EMERGENCY WITHOUT PHYS SINUS 77860 PAIN IN 09-24-2013 [facility] 7810 ABNORMAL 09-24-2013 [facility] INVOLUNTARY [facility] MOVEMENTS INTERNAL MED V700 ROUTINE 06-25-2013 [facility] GENERAL [email or web address] FACL 4739 UNSPECIFIED [...] Procedure DOS Code Location Performer Comment APPL 33743 PHOEBE NAZANIN MODALITY 6 N FAMILY 1/> AREAS [facility] TRACTION T MECHANICA L APPL 39677 PH[facility] BACK MODALITY 6 N FAMILY 1/> AREAS CHIROPRAC ELEC T STIMJ UNATTENDE D CHIROPRAC 97599 AUGUSTUSRICHARDRolanda BACK TIC 6 N FAMILY MANIPLTV CHIROPRAC TX T EXTRASPIN AL 1/> REGION THERAPEUT 81892 PHOEBE BACK IC PX 1/> 6 N FAMILY AREAS CHIROPRAC EACH 15 T MIN EXERCISES CHIROPRAC 44098 PHOEBE BACK TIC 6 N FAMILY MANIPULAT CHIROPRAC SHINE TX T SPINAL 3-4 REGIONS CHIROPRAC 18887 PHOEBE BACK TIC 6 N FAMILY MANIPULAT CHIROPRAC SHINE TX T SPINAL 3-4 REGIONS THERAPEUT 04616 PHOEBE BACK IC PX 1/> 6 N FAMILY AREAS CHIROPRAC EACH 15 T MIN EXERCISES APPL 98386 PHOEBE BACK MODALITY 6 N FAMILY 1/> AREAS CHIROPRAC ELEC T STIMJ UNATTENDE D CHIROPRAC 98736 PHOEBE BACK TIC 6 N FAMILY MANIPLTV CHIROPRAC TX T EXTRASPIN AL 1/> REGION APPL 39290 PHOEBE NAZANIN MODALITY 6 N FAMILY 1/> AREAS CHIROPRAC TRACTION T MECHANICA L APPL 50898 PHOEBE NAZANIN MODALITY 6 N FAMILY 1/> AREAS CHIROPRAC TRACTION T MECHANICA L CHIROPRAC 69618 PHOEBE BACK TIC 6 N FAMILY MANIPLTV CHIROPRAC TX T EXTRASPIN AL 1/> REGION APPL 25137 PHOEBE NAZANIN MODALITY 6 N FAMILY 1/> AREAS CHIROPRAC ELEC T STIMJ UNATTENDE D THERAPEUT 37831 PHOEBE NAZANIN IC PX 1/> 6 N FAMILY AREAS CHIROPRAC EACH 15 T MIN EXERCISES CHIROPRAC 80766 [facility]BE BACK TIC 6 N FAMILY MANIPULAT CHIROPRAC SHINE TX T SPINAL 3-4 REGIONS THERAPEUT 94001 PHOEBE BACK IC PX 1/> 6 N FAMILY AREAS CHIROPRAC EACH 15 T MIN EXERCISES APPL 32018 [facility] NAZANIN MODALITY 6 N FAMILY 1/> AREAS CHIROPRAC ELEC T STIMJ UNATTENDE D CHIROPRAC 06238 [facility]OEBE NAZANIN TIC 6 N FAMILY MANIPLTV CHIROPRAC TX T EXTRASPIN AL 1/> REGION APPL 64576 [facility] NAZANIN MODALITY 6 N FAMILY 1/> AREAS CHIROPRAC TRACTION T MECHANICA L CHIROPRAC 14224 [facility] NAZANIN TIC 6 N FAMILY MANIPLTV CHIROPRAC TX T EXTRASPIN AL 1/> REGION RADEX 07880 AUGUSTUSTOW NAZANIN SPINE 6 N FAMILY LUMBOSACR CHIROPRAC AL 2/3 T VIEWS CHIROPRAC 65180 ADAMAW NAZANIN TIC 6 N FAMILY MANIPULAT CHIROPRAC SHINE TX T SPINAL 3-4 REGIONS RADEX 14694 ADAMAW NAZANIN SPINE 6 N FAMILY CERVICAL CHIROPRAC 2 OR 3 T VIEWS CUL BACT 75479 [facility] XCPT 6 [facility] URINE INC INC BLOOD/STO OL AEROBIC ISOL RADIOLOGI 43110 [facility] C EXAM 6 [facility] CHEST 2 INC INC VIEWS FRONTAL&[place] [address] [facility]AO STREPTOCO 6 [facility] CCUS INC INC GROUP A COLLECTIO 07281 KEESHADIANA THAO N VENOUS 6 [facility] BLOOD INC INC VENIPUNCT URE BLOOD 36018 [facility]HA COUNT 6 [facility] COMPLETE INC INC AUTO&[place] [address] [facility]AO SCROTUM & 6 [facility] CONTENTS INC INC URNLS DIP 23198 [facility] THAO 6 [facility] STICK/TAB INC INC LET REAGENT AUTO MICROSCOP Y VASECTOMY 45919 [facility] THAO UNI/BI 6 [facility] SPX [place] [address] [facility]AO INFUSION 6 [facility] THERAPY INC INC PROPHYLAX [place] [address] [facility] M SURG 6 [facility] PATHOLOGY GROSS&SERGEI ROSCOPIC EXAM INJECTION J2405 [facility] THAO 6 [facility] ONDANSETR INC INC ON HCL PER 1 MG ANES 71103 [facility] VASECTOMY 6 ANESTH SHE UNI/BI OF THE INCL OPEN BLUE URETHRAL PX BASIC 54285 [facility] THAO METABOLIC 6 [facility] PANEL INC INC CALCIUM TOTAL COLLECTIO 03137 [facility] THAO N VENOUS 6 [facility] BLOOD INC INC VENIPUNCT URE BLOOD 47543 [facility] KEESHA COUNT 6 [facility] COMPLETE INC INC AUTO&AUTO DIFRNTL WBC IIV4 VACC 38564 [facility] VIRUS 0.5 HLTH DEPT HLTH DEPT ML DOS SHAY SHAY FOR IM USE BLOOD 57189 [facility] THAO COUNT 5 [facility] COMPLETE INC INC AUTO&AUTO DIFRNTL WBC COLLECTIO 82303 [facility] THAO N VENOUS 5 [facility] BLOOD INC INC VENIPUNCT URE BASIC 69970 [facility] THAO METABOLIC 5 [facility] PANEL INC INC CALCIUM TOTAL THERAPEUT 34765 [facility]AO IC 5 [facility] PROPHYLAC INC INC TIC/DX INJECTION SUBQ/[place] [address] [facility] THAO THYROID 5 [facility] STIMULATI INC INC NG HORMONE TSH COLLECTIO 13397 [facility] THAO N VENOUS 5 [facility] [place] [address] [facility] THAO THYROID 4 [facility] STIMULATI INC INC NG HORMONE TSH SYPHILIS 97950 [facility] THAO TEST 4 [facility] NON-TREPO INC INC NEMAL ANTIBODY QUAL 25 88794 [facility] THAO HYDROXY 4 [facility] INCLUDES INC INC FRACTIONS IF PERFORMED CYANOCOBA 30125 [facility]AO JUN 4 [facility] VITAMIN INC INC B-12 [place] [address] [facility] THAO THYROID 4 [facility] STIMULATI INC INC NG HORMONE TSH COMPREHEN 95341 [facility] THAO SIVE 4 [facility] METABOLIC INC INC PANEL BLOOD 71950 [facility]HA COUNT 4 [facility] COMPLETE INC INC AUTO&AUTO DIFRNTL WBC Encounters Encounter Start End Date Code Location Performer Type Date OFFICE [address] [facility] 6 6 N FAMILY T NEW 20 [facility] MINUTES T EMERGENCY 84388 A[facility] MYERS 6 6 [facility] T VISIT MODERATE [facility]VERITY HOSPITAL [facility] - 6 6 [facility] OUTPATIEN INC T EMERGENCY 56441 A[facility] HANEY 6 6 [facility]PART[facility], PLLC T VISIT MODERATE SEVERITY EMERGENCY 09906 [facility] 6 6 [facility] DE[facility] INC T VISIT LIMITED/M INOR PROB HOSPITAL [facility] - 6 6 [facility] OUTPATIEN INC T HOSPITAL [facility] - 6 6 [facility] OUTPATIEN INC T OFFICE 90309 [facility] EZEKIEL TOD OUTPATIEN 6 6 PHYSICIAN T VISIT S GROUP 10 MINUTES HOSPITAL [facility] - 6 6 [facility] OUTPATIEN INC T EMERGENCY 21036 A[facility]EN SALMON 5 5 PHYSICIAN FOR [facility] S, PLLC T VISIT MODERATE SEVERITY HOSPITAL [facility] - 5 5 [facility] OUTPATIEN INC T EMERGENCY 41809 [facility] 5 5 [facility] T VISIT LIMITED/M INOR PROB OFFICE 77179 [facility] EZEKIEL TOD CONSULTAT 5 5 PHYSICIAN ION S GROUP NEW/ESTAB PATIENT 30 MIN HOSPITAL [facility] - 5 5 [facility] OUTPATIEN [facility] KEESHA - 5 5 [facility] OUTPATIEN [facility] T EMERGENCY 86377 [facility] MORALES 5 5 [facility] T [facility]ISIT P LOW/MODER SEVERITY HOSPITAL [facility] - 5 5 [facility] OUTPATIEN [facility] T OFFICE 62527 [facility] OUTPATIEN 4 4 PHYSICIAN SERGEI T NEW 20 S GROUP MINUTES EMERGENCY 39439 [facility] 4 4 [facility] EMERGENCY T VISIT PHYS MODERATE SEVERITY HOSPITAL [facility] - 4 4 [facility] OUTPATIEN INC T OFFICE 07776 [facility] 4 4 [facility] T VISIT INTERNAL 15 MED MINUTES OFFICE 93702 [facility] 4 4 AU[facility] AUDELIA T NEW 45 MINUTES HOSPITAL [facility] - 4 4 [facility] T VISIT MODERATE SEVERITY
--- OUTSIDE RECORDS SUMMARY | 2016-12-19 06:43 | External Medical Summary Rpt | CCD ---
Demographics Preferred Language [place] Marital Status Unknown Taoist Affiliation Unknown Race Unknown Ethnic Group Unknown Author Author , DAVID Organization DAVID Address Unknown Phone [email or web address] Immunization Name Date Rout CVX Reac Dose Comm Prov Is Faci e tion ent ider Refu lity Give sed n Td 04- 9 999 Hist H149 No H149 (jalen 6-19 [facility] lt), 96 al Info adso rmat rbed ion - Sour ce Unsp ecif ied
--- OUTSIDE RECORDS SUMMARY | 2016-12-19 06:43 | External Medical Summary Rpt | CCD ---
Demographics Preferred Language Lao Marital Status Unknown Catholic Affiliation Unknown Race Unknown Ethnic Group Unknown Author Author , DAVID Organization DAVID Address Unknown Phone [email or web address] Immunization Name Date Rout CVX Reac Dose Comm Prov Is Faci e tion ent ider Refu lity Give sed n Td 04- 9 999 Hist H149 No H149 (jalen 6-19 [facility] lt), 96 al Info adso rmat rbed ion - Sour ce Unsp ecif ied
--- OUTSIDE RECORDS SUMMARY | 2016-12-19 06:43 | External Medical Summary Rpt | CCD ---
Author Author , DAVID HERNANDEZ Address Unknown Phone [email or web address] Team Providers Care Entry Processor Name Role Phone ALFARIS MOH, ALFARIS Unavailable Unavailable MOH CANCINO BRO, CANCINO Unavailable Unavailable BRO CANCINO BRO, CANCINO Unavailable Unavailable BRO BESSON AUDELIA, BESSON Unavailable Unavailable AUDELIA BESSON AUDELIA, BESSON Unavailable Unavailable AUDELIA FAUGHN ALBERTO, FAUGHN Unavailable Unavailable ALBERTO LUCIA SERGEI, LUCIA Unavailable Unavailable SERGEI [facility] Unavailable Unavailable [facility], [facility] Unavailable Unavailable INC, [facility] Unavailable Unavailable [facility]PITAL P, [facility], Unavailable Unavailable [facility] TAMI HANEY, TAMI HANEY Unavailable Unavailable [facility] Unavailable Unavailable [facility], [facility] Unavailable Unavailable INTERNAL MED, [facility] JOSE M SALGUERO Unavailable Unavailable [facility], Unavailable Unavailable [facility], [facility] EZEKIEL TOD, EZEKIEL TOD Unavailable Unavailable [facility], [facility] RIKI NICOLE, Unavailable Unavailable NAZANIN DUMAS Unavailable Unavailable [facility] FOR, WALKER Unavailable Unavailable [facility] Unavailable Unavailable DEPT [facility] Unavailable [facility]available DEPT [facility], [facility] DEPT [facility] Purpose Continuity of Care Document - 06-18-2013 through 2016 Problems Code Diagnosis DOS Provider Status [id number] OTHER 03-05-2016 [facility] CERVICAL FAMILY DISC [facility] DEGENERATIO N AT C5-C6 LEVEL M5442 LUMBAGO 03-05-2016 [facility] [place] WITH FAMILY SCIATICA [facility] LEFT SIDE [id number] MUSCLE 03-05-2016 [facility] [place] SPASM OF FAMILY BACK CHIR[facility]CT M9901 SEGMENTAL & 03-05-2016 [facility] [place] SOMATIC FAMILY DYSFUNCTION [facility] CERVICAL REGION M9902 SEGMENTAL & 03-05-2016 [facility] [place] SOMATIC FAMILY DYSFUNCTION [facility] THORACIC REGION M9903 SEGMENTAL & 03-05-2016 [facility] [place] SOMATIC FAMILY DYSFUNCTION [facility] OF LUMBAR REGION M9904 SEGMENTAL & 03-05-2016 [facility] [place] SOMATIC FAMILY DYSFUNCTION [facility] OF SACRAL REGION M9985 OTHER 03-05-2016 [facility] [place] BIOMECHANIC FAMILY AL LESIONS [facility] OF PELVIC REGION J029 ACUTE 11-27-2015 [facility]IS [facility], [facility] UNSPECIFIED R0789 OTHER CHEST 06-17-2015 [facility] R091 PLEURISY 06-17-2015 [facility] R251 TREMOR 06-17-2015 [facility]NSPECIFIED [facility] Z720 TOBACCO USE 06-17-2015 [facility] N508 OTHER 05-12-2015 [facility] SPECIFIED MEDICAL DISORDERS [facility] OF MALE GENITAL ORGANS Z9852 VASECTOMY 05-12-2015 [facility] STATUS [facility] Z0189 ENCOUNTER 04-18-2015 [facility] SPECIFIED SPECIAL EXAMINATION S Z302 ENCOUNTER 04-18-2015 [facility] STERILIZATI GROUP ON N469 MALE 03-26-2015 [facility] UNSPECIFIED C80652 ENCOUNTER 03-26-2015 [facility] FOR OTHER [facility] PREPROCEDUR INC AL EXAMINATION C4494RX UNS INJURY 02-12-2015 [facility] RT SHOULDER PHYSICIANS, UPPER ARM [facility] INITIAL ENCNTR Z23 ENCOUNTER 12-30-2014 [facility] IMMUNIZATIO [facility] DEPT N SHAY V2509 OT GENERAL 11-13-2014 [facility] CNSL&ADVICE INC CONTRACEPT MANAGEMENT V2652 VASECTOMY 11-13-2014 [facility] STERILIZATI PHYSICIANS ON STATUS GROUP V7283 OTHER 11-13-2014 [facility] SPECIFIED [facility] PRE-OPERATI INC VE EXAMINATION 5259 UNSPECIFIED 06-11-2014 [facility] DISORDER [facility] P RTING STRUCTURES 2449 UNSPECIFIED 04-13-2014 [facility] HYPOTHYROID INC ISM 0539 HERPES 12-21-2013 [facility]ANS WITHOUT GROUP MENTION OF COMPLICATIO N 95964 UNSPECIFIED 12-16-2013 [facility] CARIES PHYS 5225 PERIAPICAL 12-16-2013 [facility] ABSCESS N [facility]GENCY WITHOUT PHYS SINUS 14465 PAIN IN 09-24-2013 [facility] [...] Procedure DOS Code Location Performer Comment APPL 76349 PHOEBE NAZANIN MODALITY 6 N FAMILY 1/> AREAS CHIROP[facility]AC TRACTION T MECHANICA L APPL 41670 PHOEBE BACK MODALITY 6 N FAMILY 1/> AREAS CHIROPRAC ELEC T STIMJ UNATTENDE D CHIROPRAC 77320 AUGUSTUSRICHARDRolanda BACK TIC 6 N FAMILY MANIPLTV CHIROPRAC TX T EXTRASPIN AL 1/> REGION THERAPEUT 52328 PHOEBE BACK IC PX 1/> 6 N FAMILY AREAS CHIROPRAC EACH 15 T MIN EXERCISES CHIROPRAC 58228 PHOEBE BACK TIC 6 N FAMILY MANIPULAT CHIROPRAC SHINE TX T SPINAL 3-4 REGIONS CHIROPRAC 12783 POHEBE BACK TIC 6 N FAMILY MANIPULAT CHIROPRAC SHINE TX T SPINAL 3-4 REGIONS THERAPEUT 41142 PHOEBE BACK IC PX 1/> 6 N FAMILY AREAS CHIROPRAC EACH 15 T MIN EXERCISES APPL 94137 PHOEBE BACK MODALITY 6 N FAMILY 1/> AREAS CHIROPRAC ELEC T STIMJ UNATTENDE D CHIROPRAC 49421 PHOEBE BACK TIC 6 N FAMILY MANIPLTV CHIROPRAC TX T EXTRASPIN AL 1/> REGION APPL 29013 PHOEBE NAZANIN MODALITY 6 N FAMILY 1/> AREAS CHIROPRAC TRACTION T MECHANICA L APPL 20612 PHOEBE NAZANIN MODALITY 6 N FAMILY 1/> AREAS CHIROPRAC TRACTION T MECHANICA L CHIROPRAC 76321 PHOEBE BACK TIC 6 N FAMILY MANIPLTV CHIROPRAC TX T EXTRASPIN AL 1/> REGION APPL 98188 HPOEBE NAZANIN MODALITY 6 N FAMILY 1/> AREAS CHIROPRAC ELEC T STIMJ UNATTENDE D THERAPEUT 78968 PHOEBE NAZANIN IC PX 1/> 6 N FAMILY AREAS CHIROPRAC EACH 15 T MIN EXERCISES CHIROPRAC 13584 PHOEBE BACK TIC 6 N FAMILY MANIPULAT CHIROPRAC SHINE TX T SPINAL 3-4 REGIONS THERAPEUT 10760 PHOEBE BACK IC PX 1/> 6 N FAMILY AREAS CHIROPRAC EACH 15 T MIN EXERCISES APPL 72179 PHOEBE NAZANIN MODALITY 6 N FAMILY 1/> AREAS CHIROPRAC ELEC T STIMJ UNATTENDE D CHIROPRAC 33307 PHOEBE NAZANIN TIC 6 N FAMILY MANIPLTV CHIROPRAC TX T EXTRASPIN AL 1/> REGION APPL 77573 PHOEBE NAZANIN MODALITY 6 N FAMILY 1/> AREAS CHIROPRAC TRACTION T MECHANICA L CHIROPRAC 97421 [facility]OEBE NAZANIN TIC 6 N FAMILY MANIPLTV CHIROPRAC TX T EXTRASPIN AL 1/> REGION RADEX 77303 AUGUSTUSTOW NAZANIN SPINE 6 N FAMILY LUMBOSACR CHIROPRAC AL 2/3 T VIEWS CHIROPRAC 93608 ADAMAW NAZANIN TIC 6 N FAMILY MANIPULAT CHIROPRAC SHINE TX T SPINAL 3-4 REGIONS RADEX 99158 ADAMAW NAZANIN SPINE 6 N FAMILY CERVICAL CHIROPRAC 2 OR 3 T VIEWS CUL BACT 46774 [facility] XCPT 6 [facility] URINE INC INC BLOOD/STO OL AEROBIC ISOL RADIOLOGI 94141 [facility] THAO C EXAM 6 [facility] CHEST 2 INC INC VIEWS FRONTAL&[place] [address] [facility]AO STREPTOCO 6 [facility] CCUS INC INC GROUP A COLLECTIO 23272 KEESHADIANA THAO N VENOUS 6 [facility] BLOOD INC INC VENIPUNCT URE BLOOD 51234 [facility]HA COUNT 6 [facility] COMPLETE INC INC AUTO&[place] [address] [facility]AO SCROTUM & 6 [facility] CONTENTS INC INC URNLS DIP 21000 [facility] THAO 6 [facility] STICK/TAB INC INC LET REAGENT AUTO MICROSCOP Y VASECTOMY 98937 [facility] THAO UNI/BI 6 [facility] SPX INC [place] [address] [facility]AO INFUSION 6 [facility] THERAPY INC INC PROPHYLAX IS/[place] [address] [facility] M SURG 6 [facility] PATHOLOGY GROSS&SERGEI ROSCOPIC EXAM INJECTION J2405 [facility] THAO 6 [facility] ONDANSETR INC INC ON HCL PER 1 MG ANES 92284 [facility] VASECTOMY 6 ANESTH SHE UNI/BI OF THE INCL OPEN BLUE URETHRAL PX BASIC 86773 [facility] THAO METABOLIC 6 [facility] PANEL INC INC CALCIUM TOTAL COLLECTIO 46999 [facility] THAO N VENOUS 6 [facility] BLOOD INC INC VENIPUNCT URE BLOOD 47239 [facility] KEESHA COUNT 6 [facility] COMPLETE INC INC AUTO&AUTO DIFRNTL WBC IIV4 VACC 92181 [facility] VIRUS 0.5 [facility] DEPT HLTH DEPT ML DOS SHAY SHAY FOR IM USE BLOOD 50352 [facility] THAO COUNT 5 [facility] COMPLETE INC INC AUTO&AUTO DIFRNTL WBC COLLECTIO 16422 [facility] THAO N VENOUS 5 [facility] BLOOD INC INC VENIPUNCT URE BASIC 27194 [facility] THAO METABOLIC 5 [facility] PANEL INC INC CALCIUM TOTAL THERAPEUT 18484 [facility] THAO IC 5 [facility] PROPHYLAC INC INC TIC/DX INJECTION SUBQ/[place] [address] [facility]AO THYROID 5 [facility] STIMULATI INC INC NG HORMONE TSH COLLECTIO 22442 [facility] THAO N VENOUS 5 [facility] [place] [address] [facility] THAO THYROID 4 [facility] STIMULATI INC INC NG HORMONE TSH SYPHILIS 65587 [facility] THAO TEST 4 [facility] NON-TREPO INC INC NEMAL ANTIBODY QUAL 25 48237 [facility] HYDROXY 4 [facility] INCLUDES INC INC FRACTIONS IF PERFORMED CYANOCOBA 66905 [facility]AO JUN 4 [facility] VITAMIN INC INC B-12 [place] [address] [facility] THAO THYROID 4 [facility] STIMULATI INC INC NG HORMONE TSH COMPREHEN 19765 [facility] THAO SIVE 4 [facility] METABOLIC INC INC PANEL BLOOD 38679 [facility]HA COUNT 4 [facility] COMPLETE INC INC AUTO&AUTO DIFRNTL WBC Encounters Encounter Start End Date Code Location Performer Type Date OFFICE 81214 [facility] 6 6 N FAMILY T NEW 20 CHIROP[facility]AC MINUTES T EMERGENCY 76227 [facility] MYERS 6 6 [facility] T VISIT MODERATE [facility]VERITY HOSPITAL [facility] - 6 6 [facility] OUTPATIEN INC T EMERGENCY 16878 [facility] HANEY 6 6 [facility] T VISIT MODERATE SEVERITY EMERGENCY 61184 [facility] 6 6 [facility] T VISIT LIMITED/M INOR PROB HOSPITAL [facility] - 6 6 [facility] OUTPATIEN INC T HOSPITAL [facility] 6 6 [facility] OUTPATIEN INC T OFFICE 01146 [facility] EZEKIEL TOD OUTPATIEN 6 6 PHYSICIAN T VISIT S GROUP 10 MINUTES HOSPITAL [facility] - 6 6 [facility] OUTPATIEN INC T EMERGENCY 31608 A[facility]EN SALMON 5 5 PHYSICIAN FOR [facility] T VISIT MODERATE SEVERITY HOSPITAL [facility] - 5 5 [facility] OUTPATIEN INC T EMERGENCY 08944 [facility] 5 5 [facility] T VISIT LIMITED/M INOR PROB OFFICE 63416 [facility] EZEKIEL TOD CONSULTAT 5 5 PHYSICIAN ION S GROUP NEW/ESTAB PATIENT 30 MIN HOSPITAL [facility] - 5 5 [facility] OUTPATIEN [facility] KE[facility] - 5 5 [facility] OUTPATIEN [facility] T EMERGENCY 52735 [facility] MORALES 5 5 [facility] T VISIT P LOW/MODER SEVERITY HOSPITAL [facility] - 5 5 [facility] OUTPATIEN [facility] T OFFICE 84946 [facility] LUCIA OUTPATIEN 4 4 PHYSICIAN SERGEI T NEW 20 S GROUP MINUTES EMERGENCY 01309 [facility] 4 4 [facility] EMERGENCY T VISIT PHYS MODERATE SEVERITY HOSPITAL [facility] - 4 4 [facility]PATIEN INC T OFFICE 29274 [facility] OUT[facility] 4 4 [facility] T VISIT INTERNAL 15 MED MINUTES OFFICE 11716 [facility] OUTPATIEN 4 4 AUDELIA AUDELIA T NEW 45 MINUTES HOSPITAL [facility] - 4 4 [facility] OUTPATIEN INC T EMERGENCY 20784 [facility]NES 4 4 [facility] T VISIT MODERATE SEVERITY
== END 2016-12-19 | disposition home or self-care (01) ==
LOC: ER 23:01
PROC: 2W3RX1Z Immobilization of Left Lower Leg using Splint (ICD-10-PCS; principal; 2016-12-18)
DX: S93.602A Unspecified sprain of left foot, initial encounter (principal); X50.1XXA Overexertion from prolonged static or awkward postures, initial encounter; Y92.019 Unspecified place in single-family (private) house as the place of occurrence of the external cause